=== PATIENT | female | born 1985 | race Hispanic/Latino ===

== ENCOUNTER 2022-07-27 10:57 | Emergency (ER) | payer OTHER ==
[~2022-07-27] VITALS: Ht 160 cm; Wt 81.6 kg
[2022-07-27] MEDS ORDERED: BENZ-39 PO (14:16)
[2022-07-27] MEDS ORDERED: AZIT250T9 PO (14:16)
[2022-07-27 14:28] VITALS: BP 137/95
== END 2022-07-27 14:31 | disposition home or self-care (01) ==
LOC: EDH 10:57
DX: J06.9 Acute upper respiratory infection, unspecified (principal); J40 Bronchitis, not specified as acute or chronic; R05.9 Cough, unspecified; Z20.822 Contact with and (suspected) exposure to COVID-19
CPT/HCPCS: 99284; 71046; 87635; 87880; 87804 ×2; C9803